=== PATIENT | male | born 1995 | race American Indian/Alaskan Native ===

== ENCOUNTER 2018-08-15 23:11 | Emergency (ER) | payer OTHER ==
--- NOTE | 2018-08-16 02:24 | XRay Report ---
FINAL REPORT PROCEDURE: XR CHEST ROUTINE 2V TECHNIQUE: PA and lateral chest radiographs were obtained. CPT 20906 HISTORY: snoring and pain to chest COMPARISON: No prior studies are available for comparison. FINDINGS: Heart: Normal. Mediastinum/Vessels: Normal. Lungs/Pleural space: Normal. Bony thorax: No acute osseous abnormality. Other: IMPRESSION: Normal examination.
--- NOTE | 2018-08-16 03:02 | Emergency Department Report ---
ED General Adult HPI - General Chief complaint: Dyspnea/Respdistress Stated complaint: SOB Time Seen by Provider: 08/16/18 02:01 Source: patient, family Mode of arrival: Ambulatory Limitations: No Limitations - History of Present Illness Initial comments: 23-year-old snoring male the emergency department complaining that one year history of coughing, choking and waking up gasping for air while he sleeping. This is been occurring more frequently bothersome tinnitus. He woke up with with pressure behind his ears bilaterally and the mild chest ache to the substernal chest region. There is no shortness of breath, no fever, no chills, no presyncope, no hemoptysis, no hematemesis, no known chest,. Location: chest Radiation: non-radiation Quality: dull Consistency: constant Improves with: none, immobilization Associated Symptoms: cough. denies: loss of appetite, malaise, nausea/vomiting, rash, shortness of breath, syncope, weakness - Related Data Allergies Allergy/AdvReac Type Severity Reaction Status Date / Time No Known Allergies Allergy Unverified 08/15/18 23:22 ED Review of Systems ROS: Stated complaint: SOB Other details as noted in HPI Constitutional: denies: chills, fever Eyes: denies: eye pain, eye discharge, vision change ENT: denies: ear pain, throat pain Respiratory: cough. denies: shortness of breath, wheezing Cardiovascular: denies: chest pain, palpitations Endocrine: no symptoms reported Gastrointestinal: denies: abdominal pain, nausea, diarrhea Genitourinary: denies: urgency, dysuria Musculoskeletal: denies: back pain, joint swelling, arthralgia Skin: denies: rash, lesions Neurological: denies: headache, weakness, paresthesias Psychiatric: denies: anxiety, depression Hematological/Lymphatic: denies: easy bleeding, easy bruising ED Past Medical Hx - Past Medical History Previous Medical History?: No - Surgical History Past Surgical History?: No - Social History Smoking Status: Never Smoker Substance Use Type: None ED Physical Exam - General Limitations: No Limitations General appearance: alert, in no apparent distress - Head Head exam: Present: atraumatic, normocephalic - Eye Eye exam: Present: normal appearance, PERRL, EOMI Pupils: Present: normal accommodation - ENT ENT exam: Present: normal exam, normal orophraynx, mucous membranes moist, TM's normal bilaterally, other (low-lying uvula) - Neck Neck exam: Present: normal inspection - Respiratory Respiratory exam: Present: normal lung sounds bilaterally. Absent: respiratory distress - Cardiovascular Cardiovascular Exam: Present: regular rate, normal rhythm. Absent: systolic murmur, diastolic murmur, rubs, gallop - GI/Abdominal GI/Abdominal exam: Present: soft, normal bowel sounds - Rectal Rectal exam: Present: deferred - Extremities Exam Extremities exam: Present: normal inspection - Back Exam Back exam: Present: normal inspection - Neurological Exam Neurological exam: Present: alert, oriented X3 - Psychiatric Psychiatric exam: Present: normal affect, normal mood - Skin Skin exam: Present: warm, dry, intact, normal color. Absent: rash ED Course Vital Signs 08/15/18 23:19 Temperature 98.7 F Pulse Rate 92 H Respiratory 18 Rate Blood Pressure 147/87 O2 Sat by Pulse 98 Oximetry ED Medical Decision Making - Medical Decision Making Discussed with patient about sleep apnea need for sleep study her for definitive evaluation and likely need for CPAP, given his history. Critical care attestation.: If time is entered above; I have spent that time in minutes in the direct care of this critically ill patient, excluding procedure time. ED Disposition Clinical Impression: Snoring, Chest pain Disposition: -01 TO HOME OR SELFCARE Is pt being admited?: No Does the pt Need Aspirin: No Condition: Stable Instructions: Chest Pain (ED), Snoring (ED) Referrals: [facility] [Provider Group] - 3-5 Days Pulmonary, Sleep Medicine [Other] - 3-5 Days
[2018-08-16 04:17] VITALS: BP 141/65
== END 2018-08-16 04:17 | disposition home or self-care (01) ==
LOC: ED 23:11
DX: R06.83 Snoring (principal); R07.9 Chest pain, unspecified
CPT/HCPCS: 71046

== ENCOUNTER 2018-12-22 08:09 | Emergency (ER) | payer OTHER ==
[2018-12-22 08:12] VITALS: BP 144/71
[2018-12-22] MEDS ORDERED: IBUPROFEN PO ONE (08:56)
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
== END 2018-12-22 10:24 | disposition home or self-care (01) ==
LOC: ED 08:09
DX: M79.18 Myalgia, other site (principal); R07.81 Pleurodynia; F17.200 Nicotine dependence, unspecified, uncomplicated; V49.49XA Driver injured in collision with other motor vehicles in traffic accident, initial encounter; Y93.89 Activity, other specified; Y92.89 Other specified places as the place of occurrence of the external cause; Y99.8 Other external cause status